=== PATIENT | male | born 1950 | race Caucasian/White ===

== ENCOUNTER 2022-02-15 10:56 | Day surgery (SDC) | payer MEDICARE, BC, SELFPAY ==
[2022-02-15] VITALS (19 sets, daily range): BP systolic 92–149; BP diastolic 44–88; PULSE 60–90; RESP 14–18; TEMP 35.4–36.9; O2SAT 94–100; BMI 24.9
[2022-02-15] MEDS: ACETAMINOPHEN 500 MG TABLET 1000 MG PO ×3 (11:05→23:44)
[2022-02-15] MEDS: MIDAZOLAM HCL 1 MG/ML inj IVP (11:05)
[2022-02-15] MEDS: CELECOXIB 200 MG CAPSULE PO ×2 (11:30→20:48)
[2022-02-15] MEDS: LACTATED RINGERS 1000 ML 1,000 ML 100 ML IV (11:30)
[2022-02-15] MEDS: OXYCODONE (CR) 10 MG TAB.ER.12H PO (11:30)
[2022-02-15] MEDS: fentaNYL 100 MCG/2 ML inj IVP (12:22)
--- NOTE | 2022-02-15 12:25 | W.PM.NB ---
Nerve Block Nerve Block Time Seen by Provider: 12:25 Date Seen: 02/15/22 Type of block requested by surgeon for post-operative analgesia: adductor canal Side: right Time out performed: Yes Verification of patient name: Yes Verification of date of : Yes Site marking: site marked Name of person performing procedure: Pk Continuous monitoring Was continuous monitoring of O2 sat, B/P, manager monitoring, recorded every 15 minutes?: Yes Procedure Checklist: sterile prep, needles and gloves Ultrasound guided. Images saved: Yes Medications given in 5ml increments after negative aspiration: Ropivicaine %: 0.5 mL: 20 Needle gauge: 20 Decadron (mg): 10 Precedex (mcg): 25 Patient tolerated procedure well: Yes Additional comments: Needle noted adjacent to nerve Block Charges Block Charge (with Pro Fee): Femoral Nerve Use of Ultrasound Machine for Block: Yes- US Guidance/pain block
--- NOTE | 2022-02-15 12:25 | W.PM.NB ---
Nerve Block Nerve Block Time Seen by Provider: 12:25 Date Seen: 02/15/22 Type of block requested by surgeon for post-operative analgesia: geniculars Side: right Time out performed: Yes Verification of patient name: Yes Verification of date of : Yes Site marking: site marked Name of person performing procedure: Pk Continuous monitoring Was continuous monitoring of O2 sat, B/P, investment banking manager, recorded every 15 minutes?: Yes Procedure Checklist: sterile prep, needles and gloves Medications given in 5ml increments after negative aspiration: Ropivicaine %: 0.5 mL: 9 Needle gauge: 25 Patient tolerated procedure well: Yes Block Charges Block Charge (with Pro Fee): Genicular Nerve Block Use of Ultrasound Machine for Block: No
--- NOTE | 2022-02-15 12:26 | SUR.PREOP ---
TIME?OUT:?1220 PT/RN/MDA?VERIFICATION?OF?SURGICAL?SITE,?PROCEDURE,?AND?CONSENT OBTAINED?PRIOR?TO?INVASIVE?PROCEDURE.
[2022-02-15] MEDS: CEFAZOLIN 2 GM INJ IVP (12:45)
[2022-02-15] MEDS: TRANEXAMIC ACID 100 MG/ML INJ 1000 MG IV (13:50)
--- NOTE | 2022-02-15 13:50 | CRLHL7_ITS ---
For Patients: As a result of the Cures Act, medical imaging exams and procedure reports are released immediately into your electronic medical record. You may view this report before your referring provider. If you have questions, please contact your health care provider. Indication: Postop Technique: Two views right knee Comparison: No comparison Findings: Right knee total arthroplasty which appears in satisfactory position. Postoperative soft tissue gas and swelling. Dictated by Luciana Plasencia MD @ 02/15/2022 3:23:33 PM (Electronically Signed)
--- NOTE | 2022-02-15 13:51 | P.ORPRC_ITS ---
Procedure Note Date of procedure: 02/15/22 Procedure: SURGEON: Skip Ordonez MD LARRY OPERATOR: HILLARY Arenas PREOPERATIVE DIAGNOSIS: Left knee osteoarthritis POSTOPERATIVE DIAGNOSIS: Left knee osteoarthritis NAME OF OPERATION: Left total knee arthroplasty ANESTHESIA: Spinal ESTIMATED BLOOD LOSS: 0 mL COMPLICATIONS: None SPECIMENS: None DRAINS: None PREOPERATIVE ANTIBIOTICS: Ancef 2 grams IMPLANTS: 1. J&J Attune # 8 posterior stabilized femur 2. # 8 fixed-bearing tibia 3. # 8 posterior stabilized, 8 mm fixed-bearing polyethylene 4. 41 patella INDICATIONS: The patient is a 71-year-old male with a longstanding history of severe, unrelenting left knee pain secondary to end-stage (grade IV) left knee osteoarthritis. Despite appropriate nonoperative management, including activity modification, anti-inflammatories, [id number]-[id number] pain medication, bracing, physical therapy, and injections they continue to have pain and disability. Operative intervention was offered. The risks, benefits and expected outcomes were discussed in detail. These included but were not limited to: Infection, bleeding, injury to blood vessel or nerve, venous thromboembolism. All questions were answered to their satisfaction. Use of an learning and development assistant was necessary throughout the case for patient positioning and safety, soft tissue retraction, and closure. PROCEDURE: Spinal anesthesia was administered. The patient was placed supine on the operating table. The learning and development assistant made sure the patient was positioned appropriately. The lower extremity was prepped and draped in the usual sterile fashion. The limb was exsanguinated with the Olaf bandage. The pneumatic tourniquet was inflated to 300 mmHg. A standard anterior incision was made with the knee in flexion. Subcutaneous dissection was sharply taken through fascial layer #1. Full-thickness medial and lateral flaps were elevated. The learning and development assistant retracted the soft tissues and protected them throughout the case. A standard medial parapatellar approach was made. The patella was everted. The infrapatellar fat pad was preserved. The menisci and cruciate ligaments were sharply d?brided. Marginal osteophytes were d?brided with the rongeur. The drill was used to penetrate the femoral canal. The canal was aspirated and irrigated with pulse lavage. The intramedullary femoral guide was placed for a 5-degree valgus cut, removing 10 mm off the distal femur. The saw was used to make the cut. Whitesides line and the trans epicondylar axis were marked. The femoral sizing guide was pinned onto the distal femur. Three degrees of external rotation nicely parallels the transepicondylar axis. Pins were placed for posterior referencing. The four-in-one cutting guide was pinned onto the distal femur. The anterior, posterior, and chamfer cuts were made. The learning and development assistant protected the collateral ligaments. The box cutting guide was pinned. The box cuts were made. The boxed trial was placed and was an excellent fit. Drill holes for the lugs were made. Attention was then turned to the proximal tibia. The extramedullary tibial guide was placed for a neutral varus/valgus cut with 5 degrees of posterior slope, removing 1 mm based off the medial tibial surface. The learning and development assistant protected the collateral ligaments and the neurovascular bundle. The saw was used to make the cut. Trial components were placed. The knee was nicely balanced in both flexion and extension. The trial components were removed. The tray was placed in appropriate rotation, parallel to our tibial cutting pins. It was pinned by the learning and development assistant and the drill and the punch were used. The tray was removed. The punch was used again. We placed a bone plug in the femoral canal. Attention was then turned to the patella. [place] patellar thickness was 26 mm. The lobster claw resection guide was used with the 9.5 mm jennifer. The saw was u sed to make the cut. Drill holes were made by the learning and development assistant. The trial was placed and was an excellent fit. Cancellous surfaces were irrigated with pulse lavage and thoroughly dried by the learning and development assistant. We cemented the tibial component, then the femoral component. A trial spacer was placed. The knee was brought into full extension. We then cemented the patellar component. Excessive cement was removed. The cement was allowed to harden. We impacted the 8 mm polyethylene onto the tibial tray. The knee was taken through a range of motion and was found to be nicely balanced in both flexion and extension. The patella tracks centrally. The learning and development assistant did a three minute dilute Betadine solution soak. The learning and development assistant irrigated the wound with 3 liters of normal saline via pulse lavage. The learning and development assistant reapproximated the extensor mechanism with #1 Vicryl in an interrupted [id number] fashion. The learning and development assistant then ran the extensor mechanism with a #1 PDO Stratafix. The learning and development assistant closed the subcutaneous tissues with a 3-0 Stratafix and the skin with a running 3-0 Stratafix in a subcuticular fashion. Glue was used to seal the skin. The learning and development assistant placed a dry dressing, CHIQUI stocking, and Polar Care. Sponge and needle counts were correct x2. The patient tolerated the procedure well. There were no apparent complications. They were carefully transferred to the hospital bed and taken to the postanesthesia care unit in satisfactory condition. PLAN: The patient will be mobilized with physical therapy. Aspirin will be used for DVT prophylaxis. They will be discharged to home once medically appropriate.
--- NOTE | 2022-02-15 14:09 | P.IMCN_ITS ---
Date of Consult Patient: [facility] Patient Consult date: 02/15/22 Primary Care Provider: Dariuzs Killian MD Consult Narrative Reason for consult: Medical management of comorbidities. Narrative: Aguila Davis is a 71 year old male who presented to the hospital today for an elective R TKA. Surgery went well without any complications. Patient is generally healthy, has essential HTN, well controlled as an outpatient. He had his preop last week with Dr. Killian (PCP) - only concern identified at that time was microcytic anemia, outpatient f/u recommended. Believes his last colonoscopy was around 2 years ago. No history of blood clots, has never needed a blood transfusion. Aguila lives independently with . He is retired from [employer]. Nonsmoker, social ETOH use (not daily). Review of Systems Status of ROS: Reports: 10 or more systems reviewed and unremarkable except as noted in History and below [facility] Medical History (Updated 02/15/22 @ 14:49 by Ora Hurtado MD) Microcytic anemia Osteoarthritis of right knee Pre-op testing Surgical History (Updated 12/07/21 @ 08:46 by Paulette Murphy) Status post total right knee replacement Family History (Updated 01/30/22 @ 09:22 by Tanya Teague RN) Mother High blood pressure Brother High blood pressure Father High blood pressure Social History Smoking Status: Former smoker Do you use any of these nicotine containing products: None How often do you have a drink containing alcohol: 2-3 times a week Alcohol type: beer and wine How many standard drinks containing alcohol do you have on a typical day: 1 or 2 How often do you have six or more drinks on one occasion: Never AUDIT-C Alcohol total score: 3 Non-prescribed substance use: denies use Caffeine: Yes (coffee, 4 cups/morning) Meds Home Medications and Allergies Home Medications Medication Instructions Recorded Confirmed Type cholecalciferol (vitamin D3) 10 10 mcg PO QDAY 12/28/21 02/15/22 History mcg (400 unit) capsule sildenafil 100 mg tablet (Viagra) 100 mg PO QDAY PRN 12/28/21 02/07/22 History Home Medication Comments: Patient also on Amlodipine and HCTZ. Allergies Allergy/AdvReac Type Severity Reaction Status Date / Time No Known Drug Allergies Allergy Verified 02/15/22 12:05 Exam Narrative: Exam Narrative: GEN: Alert and oriented, sitting comfortably in bed and eating ice chips HEENT: Normal external ears, EOMIs bilaterally, no scleral icterus CV: RRR, No concerning murmurs, rubs, or gallops R: LCTA bilaterally without concerning wheezing, rales, or rhonchi Ext: wwp, no concerning edema Skin: No concerning skin lesions or rashes on exposed skin Neuro: Nonfocal Psych: Appropriate Const: Vital Signs, click to edit/add: Vital Signs - 24 hr 02/15/22 11:45 02/15/22 12:20 02/15/22 12:25 Temperature 98.4 F Pulse Rate 72 71 68 Respiratory Rate 16 14 14 Blood Pressure 130/81 140/82 H 110/68 Pulse Oximetry 95 100 100 Oxygen Delivery Me thod Room Air Nasal Cannula Nasal Cannula Oxygen Flow Rate 3 3 Assessment and Plan Assessment and plan (1) Status post total right knee replacement: Status: Acute Assessment and Plan: Doing well, prophylaxis and pain management per Orthopedic Surgery team. Anticipate routine postoperative course and home with tomorrow. (2) Osteoarthritis of right knee: Status: Acute (3) Microcytic anemia: Status: Acute Assessment and Plan: Outpatient f/u with PCP. (4) Hypertension: Status: Acute Assessment and Plan: Continue home medications. Plan - per above
--- NOTE | 2022-02-15 14:23 | W.ANESCHARGE ---
Anesthesia Charges Start Date/Time Anesthesia Start Date: 02/15/22 Anesthesia Start Time: 12:34 Stop Date/Time Anesthesia Stop Date: 02/15/22 Anesthesia Stop Time: 14:23 Summary Emergency: No
[2022-02-15] MEDS: LACTATED RINGERS 1000 ML 1,000 ML 75 ML IV (15:02)
--- NOTE | 2022-02-15 16:52 | W.ANESCHARGE ---
Anesthesia Charges Start Date/Time Anesthesia Start Date: 02/15/22 Anesthesia Start Time: 12:34 Stop Date/Time Anesthesia Stop Date: 02/15/22 Anesthesia Stop Time: 14:23 Summary Emergency: No Extremes of Age: Over 70-CPT [id number]
[2022-02-15] MEDS: CEFAZOLIN 2 GM in 0.9 % SODIUM CHLORIDE Mini-bag 100 ML IVPB (18:43)
[2022-02-15] MEDS: SENNOSIDES 1 TAB TABLET 2 TAB PO (20:48)
[2022-02-15] MEDS: ASPIRIN 81 MG TABLET EC PO (20:48)
[2022-02-16 03:00] VITALS: BP 154/77; PULSE 92; RESP 16; TEMP 36.4; O2SAT 93
[2022-02-16] MEDS: CEFAZOLIN 2 GM in 0.9 % SODIUM CHLORIDE Mini-bag 100 ML IVPB ×2 (03:23→10:04)
[2022-02-16] MEDS: ACETAMINOPHEN 500 MG TABLET 1000 MG PO (06:26)
--- NOTE | 2022-02-16 06:51 | PC.NURSE ---
Alert and orientd x4. Vitals stable. Denies pain while resting; generally tolerating pain well. Straight cathed once at night at the start of the shift. Using bedside urinal and voiding fine. Up and ambulating fine with assist of one and a walker. Right knee dressing is CDI. IV fluids D/c'd; patient is drinking fine. Will continue to monitor and assess
[2022-02-16 07:00] VITALS: BP 146/85; PULSE 92; RESP 16; TEMP 36.1; O2SAT 96
[2022-02-16 07:03] LABS: Hematocrit 34.1 % (37.0-53.0); Immature Granulocytes Abs Auto 0.02 K/uL (0.00-0.30); Lymphocytes Percent Auto 4.2 % (20-44); Mean Corpuscular HGB Conc 32 gm/dL (32-36); Mean Corpuscular Hemoglobin 26 pg (26-34); Mean Corpuscular Volume 81 fL (80-100); Monocytes Percent Auto 5.5 % (0.0-11.0); Neutrophils Percent Auto 90.2 % (42.0-72.0); Platelet Count* 252 K/uL (140-440); RDW Coefficient of Variation % 16.9 % (11.5-15.5); White Blood Count* 13.55 K/uL (4.50-11.00)
[2022-02-16 07:19] LABS: Potassium* 4.4 mmol/L (3.6-5.1); Sodium* 136 mmol/L (135-149)
[2022-02-16 07:21] LABS: Slide Review Reflex No
[2022-02-16 07:22] LABS: Blood Urea Nitrogen* 20 mg/dL (7-30); Est. Creatinine Clearance* 67.75; Estimated Glomerular Filt Rate 80 ml/min
[2022-02-16 07:24] LABS: INR 1.05 (0.91-1.10); Prothrombin Time 14.1 Seconds
--- NOTE | 2022-02-16 07:40 | PM.ORPN ---
Subjective Subjective Time Seen by Provider: 07:30 Date Seen: 02/16/22 Principal diagnosis: Day 1 s/p right TKA Interval history: Aguila is doing well this morning and is resting comfortably in bed. Patient complains of diffuse right knee pain. Pain is well managed with current scheduled and PRN oral pain medications and ice. Denies: fever, chills, chest pain, SOB, lightheadedness, dizziness. Patient has not yet been seen by Physical Therapy. Patient has not yet had a bowel movement and reports no flatulence since his surgery. No acute events over night. Patient's will be providing care at home; she is a former nurse. Ortho Exam Narrative Exam Narrative: Incision/Dressing: Dressing appears clean and dry. No drainage present. Mepilex intact. Right knee appears moderately swollen but supple with no obvious erythema, fluctuance or excessive warmth. No ecchymosis or erythematous streaking. Warmth around the wound is appropriate. Ice is being utilized as needed. CMS: Intact distally with 2+ Dorsalis pedis and Posterior Tibial pulses. 5/5 motor strength dorsal and plantar flexion. Confirmed sensation distally. Calf: Bilateral calves are supple, with no swelling, pain, tenderness, erythema, discoloration or coolness to the touch. Constitutional: Patient is alert and oriented x3. Patient is in no acute distress and converses without labored breathing. Patient is able to make decisions and demonstrates good insight. Patient is pleasant and cooperative. Affect is full range and appropriate for the circumstances. Const Vital Signs, click to edit/add: Vital Signs - 24 hr 02/15/22 11:45 02/15/22 12:20 02/15/22 12:25 Temperature 98.4 F Pulse Rate 72 71 68 Pulse Rate [Left Pulse Oximeter] Respiratory Rate 16 14 14 Blood Pressure 130/81 140/82 H 110/68 Blood Pressure [Left Arm] Pulse Oximetry 95 100 100 Oxygen Delivery Method Room Air Nasal Cannula Nasal Cannula Oxygen Flow Rate 3 3 02/15/22 14:19 02/15/22 14:25 02/15/22 14:30 Temperature 97.7 F 97.5 F L Pulse Rate 64 61 72 Pulse Rate [Left Pulse Oximeter] Respiratory Rate 14 14 16 Blood Pressure 92/51 L 93/53 L 97/47 L Blood Pressure [Left Arm] Pulse Oximetry 95 94 95 Oxygen Delivery Method Room Air Room Air Room Air Oxygen Flow Rate 02/15/22 14:35 02/15/22 14:40 02/15/22 14:45 Temperature 97.5 F L 97.1 F L Pulse Rate 72 65 61 Pulse Rate [Left Pulse Oximeter] Respiratory Rate 16 16 16 Blood Pressure 103/44 L 99/65 107/70 Blood Pressure [Left Arm] Pulse Oximetry 94 97 95 Oxygen Delivery Method Room Air Room Air Room Air Oxygen Flow Rate 02/15/22 15:04 02/15/22 15:15 02/15/22 15:30 Temperature 95.7 F L 96.1 F L Pulse Rate 61 Pulse Rate [Left Pulse Oximeter] 64 62 Respiratory Rate 16 16 16 Blood Pressure Blood Pressure [Left Arm] 116/76 124/70 121/69 Pulse Oximetry 95 95 Oxygen Delivery Method Room Air Room Air Oxygen Flow Rate 02/15/22 15:45 02/15/22 16:00 02/15/22 16:30 Temperature 96.7 F L Pulse Rate Pulse Rate [Left Pulse Oximeter] 60 67 70 Respiratory Rate 18 16 16 Blood Pressure Blood Pressure [Left Arm] 123/79 132/80 109/71 Pulse Oximetry 96 95 96 Oxygen Delivery Method Room Air Room Air Room Air Oxygen Flow Rate 02/15/22 17:00 02/15/22 18:00 02/15/22 20:38 Temperature 97.5 F L 97.8 F 97.8 F Pulse Rate Pulse Rate [Left Pulse Oximeter] 72 84 Respiratory Rate 18 16 Blood Pressure Blood Pressure [Left Arm] 125/77 132/81 Pulse Oximetry 95 94 Oxygen Delivery Method Room Air Room Air Oxygen Flow Rate 02/15/22 23:00 02/16/22 03:00 Temperature 97.8 F 97.5 F L Pulse Rate Pulse Rate [Left Pulse Oximeter] 90 92 Respiratory Rate 16 16 Blood Pressure Blood Pressure [Left Arm] 149/88 H 154/77 H Pulse Oximetry 95 93 Oxygen Delivery Method Room Air Room Air Oxygen Flow Rate Assessment and Plan Assessment and plan (1) Status post total right knee replacement: Problem details: DOS: 02/15/22. Status: Acute Assessment and Plan: - Complete 23 hour perioperative antibiotics. - PT/OT consults for education and assistance. - Social consult for discharge planning. - Weight bear as tolerated. - DVT prophylaxis includes: aspirin 81 mg BID x 1 month. Also bilateral knee high Pablo stockings (x 1 month), frequent ambulation and ankle pumps when sedentary. - In regards to constipation and no flatulence, patient is prescribed Senna BID as needed. Hold if experiencing loose stools. - Anticipate patient will be discharged to home this afternoon if the patient remains medically stable, pain is controlled and is safe with ambulation. - Return to clinic in 1 week for a wound check. Mepilex dressing will be removed at this appointment. Remove sooner if dressing becomes saturated. - Return to clinic in [address] Ordonez. - Prescribed analgesics as needed. Patient is content with current narcotic medications. Minimize narcotic pain medication use; wean off and discontinue as soon as possible. - Phone Orthopedics with any questions or concerns. (2) Osteoarthritis of right knee: Status: Acute (3) Microcytic anemia: Status: Acute (4) Hypertension: Status: Acute
[2022-02-16 09:12] VITALS: BP 107/70; PULSE 61; RESP 16; TEMP 36.4
[2022-02-16] MEDS: AMLODIPINE 5 MG TABLET 2.5 MG PO (09:25)
[2022-02-16] MEDS: SENNOSIDES 1 TAB TABLET 2 TAB PO (09:26)
[2022-02-16] MEDS: ASPIRIN 81 MG TABLET EC PO (09:26)
[2022-02-16] MEDS: CELECOXIB 200 MG CAPSULE PO (09:26)
[2022-02-16] MEDS: hydroCHLOROthiazide 25 MG TABLET PO (09:26)
[2022-02-16] MEDS: OXYCODONE 5 MG TABLET PO (09:26)
--- NOTE | 2022-02-16 09:51 | PC.SOCIAL ---
Met with pt in room. Pt is ambulating well with PT. Pt states that he will go home with his . 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 Pt states that his home is a one level home so he will be able to get around the home well. Informed pt if he is in need of anything he can reach out to the social work department.
--- NOTE | 2022-02-16 09:55 | PM.DS1 ---
DS: Providers Provider Date Seen: 02/16/22 Primary care physician: Dariusz Killian MD Admitting Clinician: Dr. Ordonez Consults: OT, PT, and Hospitalist team Attending Physician on discharge: Skip Ordonez MD Date of Discharge: 02/16/22 DS: Diagnosis Discharge Diagnosis (1) Status post total right knee replacement: Status: Acute Problem details: DOS: 02/15/22. (2) Hypertension: Status: Acute (3) Microcytic anemia: Status: Acute Problem details: Followup with PCP for this. Patient aware he needs outpatient monitoring. DS: Summary Hospital Course Hospital Course: 71-year-old male, admitted for elective right TKA on 02/15. Patient did well postoperatively and comorbidities remained stable - noted to have microcytic anemia on preoperative CBC. Recommend outpatient follow-up with PCP for this, patient verbalizes understanding. No changes made to home medications upon discharge. Prophylaxis and pain management per Orthopedic surgery team. Patient will be discharged home with routine follow-up with therapies and orthopedic surgery. Time Spent with Patient Time attestation: Total time spent providing and/or coordinating discharge services: Time spent: Less than 30 minutes Exam Narrative: Exam Narrative: Sitting comfortably in chair, answering questions appropriately. Pulse palpates as regular rate and rhythm, breathing comfortably without tachypnea or retractions. Extremities are warm and well perfused with no concerning edema, he is neurologically intact without any focal abnormalities. Const: Vital Signs, click to edit/add: Vital Signs - 24 hr 02/15/22 11:45 02/15/22 12:20 02/15/22 12:25 Temperature 98.4 F Pulse Rate 72 71 68 Pulse Rate [Left P ulse Oximeter] Respiratory Rate 16 14 14 Blood Pressure 130/81 140/82 H 110/68 Blood Pressure [Le ft Arm] Pulse Oximetry 95 100 100 Oxygen Delivery Me thod Room Air Nasal Cannula Nasal Cannula Oxygen Flow Rate 3 3 02/15/22 14:19 02/15/22 14:25 02/15/22 14:30 Temperature 97.7 F 97.5 F L Pulse Rate 64 61 72 Pulse Rate [Left P ulse Oximeter] Respiratory Rate 14 14 16 Blood Pressure 92/51 L 93/53 L 97/47 L Blood Pressure [Le ft Arm] Pulse Oximetry 95 94 95 Oxygen Delivery Me thod Room Air Room Air Room Air Oxygen Flow Rate 02/15/22 14:35 02/15/22 14:40 02/15/22 14:45 Temperature 97.5 F L 97.1 F L Pulse Rate 72 65 61 Pulse Rate [Left P ulse Oximeter] Respiratory Rate 16 16 16 Blood Pressure 103/44 L 99/65 107/70 Blood Pressure [Le ft Arm] Pulse Oximetry 94 97 95 Oxygen Delivery Me thod Room Air Room Air Room Air Oxygen Flow Rate 02/15/22 15:04 02/15/22 15:15 02/15/22 15:30 Temperature 95.7 F L 96.1 F L Pulse Rate 61 Pulse Rate [Left P ulse Oximeter] 64 62 Respiratory Rate 16 16 16 Blood Pressure Blood Pressure [Le ft Arm] 116/76 124/70 121/69 Pulse Oximetry 95 95 Oxygen Delivery Me thod Room Air Room Air Oxygen Flow Rate 02/15/22 15:45 02/15/22 16:00 02/15/22 16:30 Temperature 96.7 F L Pulse Rate Pulse Rate [Left P ulse Oximeter] 60 67 70 Respiratory Rate 18 16 16 Blood Pressure Blood Pressure [Le ft Arm] 123/79 132/80 109/71 Pulse Oximetry 96 95 96 Oxygen Delivery Me thod Room Air Room Air Room Air Oxygen Flow Rate 02/15/22 17:00 02/15/22 18:00 02/15/22 20:38 Temperature 97.5 F L 97.8 F 97.8 F Pulse Rate Pulse Rate [Left P ulse Oximeter] 72 84 Respiratory Rate 18 16 Blood Pressure Blood Pressure [Le ft Arm] 125/77 132/81 Pulse Oximetry 95 94 Oxygen Delivery Me thod Room Air Room Air Oxygen Flow Rate 02/15/22 23:00 02/16/22 03:00 02/16/22 09:12 Temperature 97.8 F 97.5 F L 97.5 F L Pulse Rate 61 Pulse Rate [Left P ulse Oximeter] 90 92 Respiratory Rate 16 16 16 Blood Pressure 107/70 Blood Pressure [Le ft Arm] 149/88 H 154/77 H Pulse Oximetry 95 93 Oxygen Delivery Me thod Room Air Room Air Oxygen Flow Rate DS: Data Data Completed and Pending Labs on day of discharge: Labs from last 24 hours 02/16/22 02/16/22 02/16/22 06:46 06:46 06:46 WBC 13.55 H RBC 4.20 L Hgb 11.0 L Hct 34.1 L MCV 81 MCH 26 MCHC 32 RDW Coeff of Kapil 16.9 H Plt Count 252 Neut % (Auto) 90.2 H Lymph % (Auto) 4.2 L Stokes % (Auto) 5.5 Eos % (Auto) 0.0 Baso % (Auto) 0.0 Neut # (Auto) 12.20 H Lymph # (Auto) 0.60 L Stokes # (Auto) 0.70 Eos # (Auto) 0.00 Baso # (Auto) 0.00 Abs Immat Gran (auto) 0.02 INR 1.05 Sodium 136 Potassium 4.4 BUN 20 Creatinine 1.0 Estimated Creat Clear 67.75 Estimated GFR 80 Discharge Plan Discharge Disposition: Home, Self-Care Discharging Surgeon: Skip Ordonez Follow-Up Appointment: One week Prescriptions: New acetaminophen 500 mg Tablet 500 - 1,000 mg PO Q6H MDD 4000 mg per day PRNQty: 100 0RF aspirin 81 mg Tablet,Delayed Release (Dr/Ec) 81 mg PO BID 30 Days Qty: 60 0RF oxycodone 5 mg Tablet 2.5 - 5 mg PO Q4-6H PRN (Reason: Pain) Qty: 42 0RF sennosides [Senna Lax] 8.6 mg Tablet 17.2 mg PO BID PRNQty: 100 0RF Rx Instructions: For narcotic related constipation No Action amlodipine [Norvasc] 2.5 mg tablet 2.5 mg PO QDAY Qty: 90 3RF hydrochlorothiazide 25 mg tablet 25 mg PO QDAY Qty: 90 3RF sildenafil [Viagra] 100 mg tablet 100 mg PO QDAY PRN Rx Instructions: administer 30 minutes to 4 hours before activity cholecalciferol (vitamin D3) 10 mcg (400 unit) capsule 10 mcg PO QDAY Activity Level: Activity as Tolerated, No strenuous activity and Use Walker Activity Detail: Keep dressing on for 1 week. Dressing is waterproof. May shower. Surgical glue covers the wound. Attend outpatient physical therapy if scheduled. Ice and elevate operative extremity without restriction. Wear compression stockings for 1 month post surgery. May remove for 1 hour per day. Ambulate every hour throughout the day. Do not drive while taking narcotic pain medication. Do not drink alcohol while taking narcotic pain medication. May drive when safe to do so and have full function of the extremities, this may take 6 weeks or more. Notify Orthopedics with any questions or concerns. ([phone]) Discharge Diet: Regular Patient Instructions: Acetaminophen (By mouth), Aspirin (By mouth), Laxative, Stimulant (By mouth), Oxycodone, Rapid Release (By mouth), Surgical Site Infections (DC), Knee Replacement (DC) Forms: Work/Release Restrictions Follow-up: [facility] [Other] - 02/19/22 9:00 am Matilde Jerome PA-C [Physician Feeder Operator Automatic] - 02/22/22 1:40 pm Dariusz Killian MD [Primary Care Provider] - (Schedule appointment as needed) Discharge Orders: Discharge Order (Routine); Ordered 02/16/22 Ordered By: Matilde Jerome
--- NOTE | 2022-02-16 11:57 | PC.NURSE ---
Pt eval by ortho PA, Dr. Hurtado, OT and PT this am. Last dose of IV ATB infused. Pt verbalized understanding of d/c diagnosis, home meds, new prescriptions, f/up appts and symptoms to report urgently to physician. Discharged via w/c to own home with his as transportation at 11:30 am.
--- NOTE | 2022-02-16 12:09 | PC.NURSE ---
Late entry, pt had 330 in orally and 1200 out in urine. Pt states passing flatus at time of d/c.
== END 2022-02-16 11:30 | disposition home or self-care (01) ==
LOC: OR 10:57 → MEDSURG 11:03
PROVIDERS: PCP Internal Medicine; Visit Provider Orthopaedic Surgery
PROC: (CPT 27447; principal; 2022-02-15 13:45)
DX: M17.11 Unilateral primary osteoarthritis, right knee (principal); I10 Essential (primary) hypertension; D50.9 Iron deficiency anemia, unspecified
CPT/HCPCS: 27447; 01402; 36415; 51702; 64447; 64454; 73560; 76942; 82565; 84132; 84295; 84520; 85025; 85610; 97110; 97116; 97161; 97165; 97530; 97535; 99100; A9270; C1776; J0690; J1100; J2250; J2405; J2704; J2795; J3010; J7120

== ENCOUNTER 2022-03-28 09:30 | Outpatient (RCR) | payer MEDICARE, BC, SELFPAY ==
--- NOTE | 2022-02-07 11:54 | PT.OPEX ---
PT [place] [facility] Eval PT [facility] Eval Start: 02/07/22 07:53 Freq: Status: Active Protocol: Document 02/07/22 11:39 KLV (Rec: 02/07/22 11:51 KLV [id number]) E-signed By Nelly Fernández, PT Physical Therapy Outpatient Evaluation Insurance Information Recert Due Date 05/04/22 Insurance Name Medicare B,Other; See Comments Insurance Information/Comments [place] Medical Diagnosis Pre and post R TKA Right knee pain Treating Diagnosis Right knee pain, limited knee ROM, antalgic gait, R LE weakness Referring MD Ordonez Subjective Subjective Aguila reports to PT with primary complaint of right knee pain with gradual onset > 6 months. He is planning for upcoming R TKA 02/15/[address] Ordonez. Currently not using AD and active with walking and golfing. He lives in a 1 story rambler with his who is a retired nurse. Has 3 stairs to enter with railing on right . Has a FWW, cane, chain tender, raised toilet seats, shower chair (walk in shower). is available and able to drive patient following surgery. PMH: hypertension Pain Comments 11/19 pre surgery Date of Last Physician Visit 12/07/21 Current Work Status Retired Precautions Therapy Limitations/Systems Review Not Limited Objective Other/Pertinent Objective Knee ROM: -R 0-7-118 -L 0-5-129 Quad activation good SLR able to perform x15 without extension lag Gait: without AD, bowing of R LE with limited stance time R LE SL balance: 5 sec General TTP surrounding medial >lateral joint line Patellar mobility: good Sensation: intact to light touch throughout LE, denies radicular symptoms R hip ROM WNL and 5/5 strength UE ROM WNL and 5/5 strength Functional Test Performed & Score LEFS: 25/80 Assessment Assessment/Impression Pt presents with signs and symptoms consistent with severe R knee OA. DOS: anticipated for 02/15/22. Expected deficits/impairments in pain, ROM, and strength. Pt would benefit from skilled PT interventions to facilitate safety post-operatively and optimize function post operatively. Today's session focused on education of HEP and safety precautions with home set-up, stair negotiation , total knee precautions and ADLs to follow post- operatively. Patient able to verbalize and demonstrate understanding of precautions and HEP today. Primary Functional Limitations Walking, sleeping, stair negotiation, playing golf Plan of Care Rehabilitation Potential Good Physical Therapy Goals By end of session today, patient will... Demonstrate appropriate gait pattern with FWW to utilize post surgery for optimal safety when ambulating Demonstrate ability to negotiate stairs using appropriate stair pattern post surgery for optimal safety when at home and in community Verbalize understanding of most appropriate home set up including needed equipment for optimal safety and recovery post surgery Be independent in HEP program to show ability to perform appropriate exercises post surgery Treatment Plan/Direct Interventions Gait Training,Ice/Cold/ Vasopneumatic,Joint Mobilization,Manual Therapy, Neuromuscular Re-ed,Self-Care/ Home Management,Therapeutic Activities,Therapeutic Exercises Frequency/Duration Re-evaluate following surgery Patient Will Be Discharged From Therapy Completion of LTG(s), Independent w/HEP, Independently Progressing Evaluation Billing Untimed Code Treatment Minutes 15 Complexity Low Certification Information Initial Certification Date 02/07/22 Ending Certification Date 05/04/22 Provider Signature Shows Agreement With POC & Medical Necessity Physician Comment/Change Comment or Changes Physician NPI Number #
== END 2022-03-28 10:18 | disposition home or self-care (01) ==
PROVIDERS: PCP Internal Medicine; Visit Provider Orthopaedic Surgery
DX: M25.561 Pain in right knee (principal); Z51.89 Encounter for other specified aftercare
CPT/HCPCS: 80053; 97110; 97140; 97161; 97164

== ENCOUNTER 2023-02-05 08:16 | Outpatient (CLI) | payer MEDICARE, BC, SELFPAY | END 2023-02-05 08:17 | disposition home or self-care (01) | PROVIDERS: PCP Internal Medicine; Visit Provider Internal Medicine | DX: I10 Essential (primary) hypertension (principal); D50.9 Iron deficiency anemia, unspecified; Z13.6 Encounter for screening for cardiovascular disorders; Z12.5 Encounter for screening for malignant neoplasm of prostate | CPT/HCPCS: 80053; 80061; 84153 ==

== ENCOUNTER 2024-02-04 08:15 | Outpatient (CLI) | payer MEDICARE, BC, SELFPAY | END 2024-02-04 08:16 | disposition home or self-care (01) | LOC: NFLDREF 08:16 | PROVIDERS: PCP Internal Medicine; Visit Provider Internal Medicine | DX: I10 Essential (primary) hypertension (principal) | CPT/HCPCS: 80053 ==

== ENCOUNTER 2024-02-18 05:59 | Day surgery (SDC) | payer MEDICARE, BC, SELFPAY ==
[2024-02-18] VITALS (20 sets, daily range): BP systolic 96–156; BP diastolic 57–85; PULSE 54–69; RESP 14–18; TEMP 36.3–36.7; O2SAT 94–98; BMI 24.7
[2024-02-18] MEDS: ACETAMINOPHEN 500 MG TABLET 1000 MG PO (06:04)
[2024-02-18] MEDS: CELECOXIB 200 MG CAPSULE PO (06:28)
[2024-02-18] MEDS: OXYCODONE (CR) 10 MG TAB.ER.12H PO (06:28)
[2024-02-18] MEDS: SODIUM CHLORIDE 0.9 % (FLUSH) 10 ML SYRINGE IVF (06:28)
[2024-02-18] MEDS: LACTATED RINGERS 1000 ML 1,000 ML 100 ML IV (06:28)
[2024-02-18] MEDS: fentaNYL 100 MCG/2 ML inj IVP (07:28)
[2024-02-18] MEDS: MIDAZOLAM HCL 1 MG/ML inj IVP (07:28)
--- NOTE | 2024-02-18 07:30 | SUR.PREOP ---
TIME?OUT:?0728 PT/RN/MDA?VERIFICATION?OF?SURGICAL?SITE Left Knee,?PROCEDURE Nerve Block,?AND?CONSENT OBTAINED?PRIOR?TO?INVASIVE?PROCEDURE.
--- NOTE | 2024-02-18 07:38 | W.PM.NB ---
Nerve Block Nerve Block Time Seen by Provider: 07:29 Date Seen: 02/18/24 Type of block requested by surgeon for post-operative analgesia: adductor canal Time out performed: Yes Verification of patient name: Yes Verification of date of : Yes Site marking: site marked Name of person performing procedure: Pk Continuous monitoring Was continuous monitoring of O2 sat, B/P, jig bore tool maker, recorded every 15 minutes?: Yes Procedure Checklist: sterile prep, needles and gloves Ultrasound guided. Images saved: Yes Medications given in 5ml increments after negative aspiration: Ropivicaine %: 0.5 mL: 15 Needle gauge: 20 Precedex (mcg): 25 Patient tolerated procedure well: Yes Additional comments: Needle noted adjacent to nerve Block Charges Block Charge (with Pro Fee): Femoral Nerve Use of Ultrasound Machine for Block: Yes- US Guidance/pain block
--- NOTE | 2024-02-18 07:39 | P.NB_ITS ---
Nerve Block Nerve Block Time Seen by Provider: 07:29 Date Seen: 02/18/24 Type of block requested by surgeon for post-operative analgesia: geniculars Time out performed: Yes Verification of patient name: Yes Verification of date of : Yes Site marking: site marked Name of person performing procedure: Pk Continuous monitoring Was continuous monitoring of O2 sat, B/P, alarm security or surveillance monitor, recorded every 15 minutes?: Yes Procedure Checklist: sterile prep, needles and gloves Medications given in 5ml increments after negative aspiration: Ropivicaine %: 0.5 mL: 9 Needle gauge: 25 Patient tolerated procedure well: Yes Block Charges Block Charge (with Pro Fee): Genicular Nerve Block Use of Ultrasound Machine for Block: No
--- NOTE | 2024-02-18 07:40 | W.ANESCHARGE ---
Anesthesia Charges Start Date/Time Anesthesia Start Date: 02/18/24 Anesthesia Start Time: 07:35 Stop Date/Time Anesthesia Stop Date: 02/18/24 Anesthesia Stop Time: 10:03 Summary Extremes of Age - Over 70 or under 1: MDA
[2024-02-18] MEDS: CEFAZOLIN 2 GM INJ IVP (07:45)
[2024-02-18] MEDS: TRANEXAMIC ACID 100 MG/ML INJ 1000 MG IV (07:50)
--- NOTE | 2024-02-18 09:17 | CRLHL7_ITS ---
For Patients: As a result of the Cures Act, medical imaging exams and procedure reports are released immediately into your electronic medical record. You may view this report before your referring provider. If you have questions, please contact your health care provider. Indication: Postop Technique: Two views left knee Findings/Impression: Hardware from a left total knee arthroplasty is in satisfactory position. Bone alignment is normal. No sign of acute fracture. Postop changes are within normal limits. Dictated by Eric Shah MD @ 02/18/2024 11:17:56 AM (Electronically Signed)
--- NOTE | 2024-02-18 09:19 | PM.ORPRC ---
Procedure Note Date of procedure: 02/18/24 Procedure: PREOPERATIVE DIAGNOSIS: Left knee osteoarthritis POSTOPERATIVE DIAGNOSIS: Left knee osteoarthritis NAME OF OPERATION: Left total knee arthroplasty SURGEON: Skip Ordonez MD ANILINE PRESS WORKER: Susie Mayorga PA-C ANESTHESIA: Spinal ESTIMATED BLOOD LOSS: 0 mL COMPLICATIONS: None SPECIMENS: None DRAINS: None PREOPERATIVE ANTIBIOTICS: Ancef 2 grams IMPLANTS: 1. J&J Attune # 7 posterior stabilized femur 2. # 7 fixed-bearing tibia 3. # 7 posterior stabilized, 10 mm fixed-bearing polyethylene 4. 41 patella INDICATIONS: The patient is a 74-year-old with a longstanding history of severe, unrelenting left knee pain secondary to end-stage (grade IV) left knee osteoarthritis. Despite appropriate nonoperative management, including activity modification, anti-inflammatories, [id number] pain medication, bracing, physical therapy, and injections they continue to have pain and disability. Operative intervention was offered. The risks, benefits and expected outcomes were discussed in detail. These included but were not limited to: Infection, bleeding, injury to blood vessel or nerve, venous thromboembolism. All questions were answered to their satisfaction. Use of an assistant laboratory director was necessary throughout the case for patient positioning and safety, soft tissue retraction, and closure. PROCEDURE: Spinal anesthesia was administered. The patient was placed supine on the operating table. The assistant laboratory director made sure the patient was positioned appropriately. The lower extremity was prepped and draped in the usual sterile fashion. The limb was exsanguinated with the Olaf bandage. The pneumatic tourniquet was inflated to 300 mmHg. A standard anterior incision was made with the knee in flexion. Subcutaneous dissection was sharply taken through fascial layer #1. Full-thickness medial and lateral flaps were elevated. The assistant laboratory director retracted the soft tissues and protected them throughout the case. A standard subvastus approach was made. The patella was subluxed. The infrapatellar fat pad was preserved. The menisci and cruciate ligaments were sharply d?brided. Marginal osteophytes were d?brided with the rongeur. The drill was used to penetrate the femoral canal. The canal was aspirated and irrigated with pulse lavage. The intramedullary femoral guide was placed for a 5-degree valgus cut, removing 10 mm off the distal femur. The saw was used to make the cut. Whitesides line and the trans epicondylar axis were marked. The femoral sizing guide was pinned onto the distal femur. Three degrees of external rotation nicely parallels the transepicondylar axis. Pins were placed for posterior referencing. The four-in-one cutting guide was pinned onto the distal femur. The anterior, posterior, and chamfer cuts were made. The assistant laboratory director protected the collateral ligaments. The box cutting guide was pinned. The box cuts were made. The boxed trial was placed and was an excellent fit. Drill holes for the lugs were made. Attention was then turned to the proximal tibia. The extramedullary tibial guide was placed for a neutral varus/valgus cut with 5 degrees of posterior slope, removing 0 mm based off the medial tibial surface. The assistant laboratory director protected the collateral ligaments and the neurovascular bundle. The saw was used to make the cut. Trial components were placed. The knee was nicely balanced in both flexion and extension. The trial components were removed. The tray was placed in appropriate rotation, parallel to our tibial cutting pins. It was pinned by the assistant laboratory director and the drill and the punch were used. The tray was removed. The punch was used again. We placed a bone plug in the femoral canal. Attention was then turned to the patella. [place] patellar thickness was 26 mm. The lobster claw resection guide was used with the 9.5 mm jennifer. The saw was used to make the cut. Drill holes were made by the assistant laboratory director. The trial was placed and was an excellent fit. Cancellous surfaces were irrigated with pulse lavage and thoroughly dried by the assistant laboratory director. We cemented the tibial component, then the femoral component. We impacted the 10 mm polyethylene onto the tibial tray. The knee was brought into full extension. We then cemented the patellar component. Excessive cement was removed. The cement was allowed to harden. The knee was taken through a range of motion and was found to be nicely balanced in both flexion and extension. The patella tracks centrally. The assistant laboratory director did a three minute dilute Betadine solution soak. The assistant laboratory director irrigated the wound with 3 liters of normal saline via pulse lavage. The assistant laboratory director reapproximated the extensor mechanism with #1 Vicryl in an interrupted [id number] fashion. The assistant laboratory director then ran the extensor mechanism with a #1 PDO Stratafix. The assistant laboratory director closed the subcutaneous tissues with a 3-0 Stratafix and the skin with a running 3-0 Stratafix in a subcuticular fashion. Glue was used to seal the skin. The assistant laboratory director placed a dry dressing. Sponge and needle counts were correct x2. The patient tolerated the procedure well. There were no apparent complications. They were carefully transferred to the hospital bed and taken to the postanesthesia care unit in satisfactory condition. PLAN: The patient will be mobilized with physical therapy. Aspirin will be used for DVT prophylaxis. They will be discharged to home once medically appropriate.
--- NOTE | 2024-02-18 10:04 | W.ANESCHARGE ---
Anesthesia Charges Start Date/Time Anesthesia Start Date: 02/18/24 Anesthesia Start Time: 07:35 Stop Date/Time Anesthesia Stop Date: 02/18/24 Anesthesia Stop Time: 10:03
--- NOTE | 2024-02-18 14:53 | SUR.PHASEII ---
Pt voided x1.
== END 2024-02-18 14:44 | disposition home or self-care (01) ==
LOC: OR 05:59
PROVIDERS: PCP Internal Medicine; Visit Provider Orthopaedic Surgery
PROC: (CPT 27447; principal; 2024-02-18 07:15)
DX: M17.12 Unilateral primary osteoarthritis, left knee (principal); G89.18 Other acute postprocedural pain
CPT/HCPCS: 27447; 01402; 64447; 64454; 73560; 76942; 97110; 97116; 97161; 99100; A9270; C1776; J0690; J1100; J2250; J2405; J2704; J2795; J3010; J7120

== ENCOUNTER 2024-04-02 07:30 | Outpatient (RCR) | payer MEDICARE, BC, SELFPAY ==
--- NOTE | 2024-02-11 07:47 | PT.OPEX ---
PT [facility] [facility] PT [facility] Eval Start: 01/29/24 11:13 Freq: Status: Active Protocol: Document 02/11/24 07:01 MLS (Rec: 02/11/24 07:46 MLS [id number]) E-signed By Lyla Lee DPT Physical Therapy Outpatient Evaluation Insurance Information Recert Due Date 05/10/24 Insurance Name Medicare B,[employer] Medical Diagnosis M17.12 unilateral primary OA, left knee Z96.652 presence of left artificial knee joint s/p left TKA 02/18/24 Treating Diagnosis TKA protocol Referring MD Dr. Ordonez Subjective Subjective Patient is a 73 year old male who presents to physical therapy for his pre-op appointment prior to left TKA on 02/18/24. He states that normally for exercise he likes to golf and walk. Significant past medical history includes right TKA (2 years ago) and arthritis. Pain Comments Today: 5/10 on a 0-10 pain scale with 10 = extreme pain At its worst: 8-9/10 At its best: 5/10 Current Work Status Retired Precautions Weight Bearing Status Full Weight Bearing Therapy Limitations/Systems Review Not Limited Objective Other/Pertinent Objective GAIT/FUNCTIONAL MOBILITY Independent KNEE ROM Left: Extension/Flexion: 0-120 Right: WNL HIP ROM Grossly tested WNL LLE MMT: Hip flexion: R 5/5 L 5/5 Hip abduction: R 4/5 L 4/5 Hip extension: R 5/5 L 5/5 Knee flexion: R 5/5 L 5/5 Knee extension: R 5/5 L 5/5 Reviewed/demonstrated on frequency to perform HEP post operatively including: long sitting quad ankle pumps supine heel slide with strap supine quad sets supine SAQ SLR with quad set seated long arc quad seated knee flexion AAROM supine knee extension stretch on towel roll Extensive discussion and education on what to expect post operatively. Time was spent discussing home modifications, Assistive devices, pain control, fall prevention, hospital stay time line, and assist needed for activities post surgically. Pt questions were answered and demonstrated understanding. Assessment Assessment/Impression Pt is a 73 year old male who presents to PT for his pre-op appointment prior to left TKA on 02/18/24. Patient also has notable objective findings including decreased strength which are also likely contributing to the problem. Patient is a good candidate for skilled therapy to target deficits described above. Skilled PT intervention is necessary for use of therapeutic exercise manual therapy, neuromuscular re- education, gait training, and therapeutic activity. Functional impairments include difficulty with: standing, walking, sleeping, exercising and ADLs. See appropriate sections of PT eval for complete list of goals and POC . D/C plan and criteria is for pt to achieve the goals as listed below or until max rehab potential is met. Pt was agreeable with plan of care and goals established. Primary Functional Limitations standing walking exercising ADLs sleeping Plan of Care Rehabilitation Potential Good Physical Therapy Goals Within 10-12 weeks: 1) Pt will improve knee AROM at least 0 to 120 for improved sit to stand transfers 2) Pt will demonstrate negative extensor lag during straight leg raise exercise with ability to complete at least 15 reps with 5 sec hold to improve strength for ambulation 3) Patient will demonstrate/ report ability to walk for 15 minutes w/SPC with pain level <1/10, to allow for community and household ambulation. 4) Pt will be indep with HEP for mcfp management of pain/symptoms 5) Patient will ascend/descend at least 10 steps using single rail and reciprocal pattern to improve ease of mobility at home/community 7) Patient will demonstrate/ report ability to walk for 15 minutes w/o AD with pain level <1/10, to allow for community and household ambulation. Coordination/Communication With Referral Source Treatment Plan/Direct Interventions Gait Training,Ice/Cold/ Vasopneumatic,Manual Therapy, Neuromuscular Re-ed, Therapeutic Activities, Therapeutic Exercises Patient Will Be Discharged From Therapy Independently Progressing Evaluation Billing Untimed Code Treatment Minutes 15 Complexity Low Certification Information Provider Signature Required Yes Provider Signature Shows Agreement With POC & Medical Necessity Physician NPI Number Write NPI# Here Physician Comment/Change : Physician Signature & Date Requested Please Sign/Date Here
== END 2024-06-29 08:40 | disposition home or self-care (01) ==
PROVIDERS: PCP Internal Medicine; Visit Provider Orthopaedic Surgery
DX: M17.12 Unilateral primary osteoarthritis, left knee (principal); Z96.652 Presence of left artificial knee joint; Z51.89 Encounter for other specified aftercare
CPT/HCPCS: 97110; 97140; 97161; 97164

== ENCOUNTER 2024-08-19 08:54 | Outpatient (CLI) | payer MEDICARE, BC, SELFPAY | END 2024-08-19 08:55 | disposition home or self-care (01) | LOC: NFLDREF 08-24 16:34 | PROVIDERS: PCP Internal Medicine; Referring Provider Internal Medicine; Visit Provider Internal Medicine | DX: I10 Essential (primary) hypertension (principal); E78.5 Hyperlipidemia, unspecified; Z12.5 Encounter for screening for malignant neoplasm of prostate | CPT/HCPCS: 80053; 80061; G0103 ==